=== PATIENT | female | born 1975 | race Two or more races ===

== ENCOUNTER 2020-01-18 08:44 | Inpatient (IN) | payer MEDICAID ==
[2020-01-16 09:42] LABS: APPEARANCE,URINE SLIGHTLY CLOUDY; BILIRUBIN, URINE NEGATIVE (NEGATIVE); COLOR,URINE PALE YELLOW; GLUCOSE, URINE (UA) 4+ (NEGATIVE); KETONES,URINE 1+ (NEGATIVE); LEUKOCYTE ESTERASE ,URINE NEGATIVE (NEGATIVE); NITRITE,URINE NEGATIVE (NEGATIVE); PH,URINE 5 (4.5-8.0); PROTEIN,URINE 1+ (NEGATIVE); UROBILINOGEN,URINE NORMAL MG/DL (0.0-1.0)
[2020-01-16 09:51] LABS: BASOPHILS % (AUTO) 1.5 % (0.0-2.0); EOSINOPHILS % (AUTO) 2.9 % (0.0-3.0); HEMATOCRIT 42.8 % (37.0-47.0); HEMOGLOBIN 14.5 G/DL (12.0-16.0); LYMPHOCYTES % (AUTO) 44.8 % (20.0-45.0); MEAN CORPUSCULAR VOLUME 90 FL (80-99); MONOCYTES % (AUTO) 5.8 % (1.0-10.0); PLATELET COUNT 362 K/UL (150-450); RED BLOOD COUNT 4.73 M/UL (4.20-5.40); RED CELL DISTRIBUTION WIDTH 13.5 % (11.6-14.8); WHITE BLOOD COUNT 7.1 K/UL (4.8-10.8)
[2020-01-16 10:00] LABS: ANION GAP 5 mmol/L (5-15); BLOOD UREA NITROGEN 13 mg/dL (7-18); CALCIUM 8.9 MG/DL (8.5-10.1); CARBON DIOXIDE 30 MMOL/L (21-32); CHLORIDE 101 MMOL/L (98-107); CREATININE 0.8 MG/DL (0.55-1.30); POTASSIUM 4.5 MMOL/L (3.5-5.1); SODIUM 136 MMOL/L (136-145)
[2020-01-16 10:06] LABS: INR 0.9 (0.9-1.1)
--- NOTE | 2020-01-16 11:33 | Diagnostic Imaging Report ---
Procedure: XRAY Chest 2v Reason for study: Reason For Exam: PREOP Comparison films: None. FINDINGS: There is a Port-A-Cath in place. Vascularity is normal. The lung alvarez are clear bilaterally. Cardiac and mediastinal silhouette are within normal limits. CP angles are sharp. The bony thorax appear unremarkable. IMPRESSION: NO ACUTE CARDIOPULMONARY DISEASE.
--- NOTE | 2020-01-16 15:15 | Pre-op HX & Phy Repo 2 SIG ---
DATE OF ADMISSION: 01/18/2020 DATE OF SURGERY: Scheduled for surgery, January 18, 2020. 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 The patient recently had to stop chemotherapy due to elevated liver function tests and some neuralgias approximately six weeks ago. The patient is scheduled to undergo left modified radical mastectomy and right total mastectomy. She has declined immediate reconstruction. PAST MEDICAL HISTORY/MEDICATIONS: None. ALLERGIES: None. OPERATIONS: Cholecystectomy. REVIEW OF SYSTEMS: She is 4, para 4. She has irregular menstrual periods. PHYSICAL EXAMINATION: GENERAL: The patient is 5 feet 1 inch, 201 pounds. VITAL SIGNS: Within normal limits. HEENT: Within normal limits. LUNGS: Clear. HEART: Regular rhythm. BREASTS: Large and ptotic. There is no palpable breast mass. There is a 3 x 4 cm mobile mass in the left axilla previously that has diminished in size. There is no palpable mass in either breast. There is no right axillary or supraclavicular lymphadenopathy. ABDOMEN: Soft. PELVIC: Per primary care. RECTAL: Per primary care. EXTREMITIES: Without edema. NEUROLOGIC: Physiologic. IMPRESSION: 1. Poorly differentiated stage II carcinoma, left breast, status post neoadjuvant chemotherapy. 2. BRCA2 genetic mutation. PLAN: Left modified radical mastectomy and right total mastectomy. DISCUSSION: I have had a full discussion with the patient regarding the nature of her condition, the nature of the surgery, indications, alternatives, options, and risks. She has declined reconstruction at this time. She understands the procedure includes lymph node dissection on the left side, which will not be done on the right. She understands drains will be needed and inpatient care postoperatively. I have discussed the risks of flap necrosis, infection, bleeding, need for additional procedures based on final pathology, need for additional treatments based on final pathology, etc. All questions have been answered. The patient understands and agrees to proceed. Adrian Montez M.D. DR: CARISA JOB#: [id number] CC: RERE
[2020-01-18] VITALS (14 sets, daily range): BP systolic 113–136; BP diastolic 54–76
[~2020-01-18] VITALS: Ht 157.5 cm; Wt 91.2 kg
[2020-01-18] MEDS ORDERED: Succinylcholine 20mg/ml 10ml vial ONE (10:26)
[2020-01-18] MEDS ORDERED: Rocuronium Bromide 50mg/5ml Inj IV ONE (10:26)
[2020-01-18] MEDS ORDERED: Bacitracin 50000 Units Vial ONE (10:26)
[2020-01-18] MEDS ORDERED: Midazolam 2mg/2ml Inj ONE (10:27)
[2020-01-18] MEDS ORDERED: fentaNYL 100 mcg/2 mL IV ONE (10:27)
[2020-01-18] MEDS ORDERED: Lidocaine 1% MPF 10mg/ml 5ml ONE (10:30)
--- NOTE | 2020-01-18 10:42 | Pre-Procedure Note/Attestation ---
Pre-Procedure Note/Attestation Complete Prior to Procedure Planned Procedure: bilateral Procedure Narrative: left modified radical mastectomy and right total mastectomy Indications for Procedure Pre-Operative Diagnosis: Metastatic left breast cancer to axillary lymph node; BRCA 2 mutation Attestation I attest that I discussed the nature of the procedure; its benefits; risks and complications; and alternatives (and the risks and benefits of such alternatives), prior to the procedure, with the patient (or the patient's legal lead customer service representative). I attest that, if there was a reasonable possibility of needing a blood transfusion, the patient (or the patient's legal lead customer service representative) was given the [facility] standardized written summary, pursuant to the [place] Blood Safety Act ([place] Health and Safety Code # 1645, as amended). I attest that I re-evaluated the patient just prior to the surgery and that there has been no change in the patient's H&P, except as documented below: none Adrian Montez MD Jan 18, 2020 10:42
[2020-01-18] MEDS ORDERED: Sterile Water Irrig 1000ml IRRIG ONE (11:00)
[2020-01-18] MEDS ORDERED: Insulin Human Regular 100units/ml 3ml ONE (11:00)
[2020-01-18] MEDS ORDERED: Insulin Human Regular 100units/ml 3ml IV SCH (11:00)
[2020-01-18] MEDS ORDERED: NS Irrig 1000ml ONE (11:00)
[2020-01-18] MEDS ORDERED: LR 1000ml ONE (11:00)
--- NOTE | 2020-01-18 11:03 | NUR ---
regular insulin 8 units sq given unable to scan barcode not working
[2020-01-18] MEDS ORDERED: Acetaminophen (Non formulary) 100 ML IV SCH (11:15)
[2020-01-18] MEDS ORDERED: Insulin Human Regular 100units/ml 3ml SUBQ SCH (11:15)
[2020-01-18] MEDS ORDERED: Morphine Sulfate 10mg/ml Inj ONE (12:06)
[2020-01-18] MEDS ORDERED: Glycopyrrolate 0.2mg/ml 1ml Vial ONE (12:08)
[2020-01-18] MEDS ORDERED: Sodium Chloride 10ml vial INJ ONE (12:08)
[2020-01-18] MEDS ORDERED: Ketorolac 30mg Inj ONE (12:08)
--- NOTE | 2020-01-18 12:29 | Anethesia Preoperative Eval ---
Anesthesia Pre-op PMH/ROS General Date of Evaluation: Jan 18, 2020 Time of Evaluation: 10:48 Anesthesiologist: Carissa ASA Score: ASA 3 Mallampati Score Class I : Soft palate, uvula, fauces, pillars visible Class II: Soft palate, uvula, fauces visible Class III: Soft palate, base of uvula visible Class IV: Only hard plate visible Mallampati Classification: Class III Surgeon: Melida Diagnosis: L breast CA Surgical Procedure: Bilateral mastectomy with L axillary l/n dissection Anesthesia History: none Family History: no anesthesia problems Allergies: Coded Allergies: No Known Allergies (Unverified , 01/16/20) Medications: see eMAR Patient NPO?: Yes Past Medical History Cardiovascular: Denies: HTN, CAD, NV, valve dz, arrhythmia, other Pulmonary: Reports: CELIA; Denies: asthma, COPD, other Gastrointestinal/Genitourinary: Reports: GERD; Denies: CRI, ESRD, other Neurologic/Psychiatric: Reports: depression/anxiety; Denies: dementia, CVA, TIA, other Endocrine: Reports: DM - Elevated BS on two occasions, sliding scale insulin, family informed; Denies: hypothyroidism, steroids, other HEENT: Denies: cataract (L), cataract (R), glaucoma, OMAHA (L), OMAHA (R), other Hematology/Immune: Reports: other - s/p chemotherapy; Denies: anemia, DVT, bleeding disorder Musculoskeletal/Integumentary: Denies: OA, RA, DJD, DDD, edema, other Other: obesity PMH Narrative: as above PSxH Narrative: Cholecystectomy Anesthesia Pre-op Phys. Exam Physician Exam Last Vital Signs Date Time Temp Pulse Resp B/P (MAP) Pulse Ox O2 Delivery O2 Flow Rate FiO2 01/18/20 09:31 Room Air 01/18/20 09:12 97.3 67 20 122/76 98 Constitutional: NAD Neurologic: CN 2-12 intact Cardiovascular: RRR, no M/R/G Respiratory: CTA Gastrointestinal: other - obesity Airway Exam Mallampati Score: Class III MO: limited Neck: sdhort ROM: full Teeth: missing Dentures: no upper, no lower Anesthesia Pre-op A/P Labs Chemistry Test 01/18/20 10:42 POC Whole Blood Glucose Pending Risk Assessment & Plan Assessment: ASA 3 Plan: GA with ETT Status Change Before Surgery: No Pre-Antibiotics Drug: Ancef 2gr. Given Within 1 Hr of Incision: Yes Time Given: 11:42 Omega Ferrer MD Jan 18, 2020 12:29
[2020-01-18] MEDS ORDERED: Meperidine 25mg/1ml Inj (FOR RIGORS ONLY) IV PRN (12:30)
[2020-01-18] MEDS ORDERED: Hydromorphone 0.5mg/0.5ml inj IVP PRN (12:30)
[2020-01-18] MEDS ORDERED: Ketorolac 30mg Inj IV PRN (12:30)
[2020-01-18] MEDS ORDERED: LR 1000ml 1,000 ML IVLG SCH (12:30)
[2020-01-18] MEDS ORDERED: Metoclopramide 10mg/2ml Inj IVP PRN ×2 (12:30→15:15)
[2020-01-18] MEDS ORDERED: DiphenhydrAMINE 50mg/ml Inj IVP PRN ×3 (12:30→19:30)
[2020-01-18] MEDS ORDERED: PCA HYDROmorphone 1mg/ml 30 ML IV PRN ×2 (14:52→19:30)
[2020-01-18] MEDS ORDERED: PCA Education Pamphlet MISC SCH (14:53)
[2020-01-18] MEDS ORDERED: Rate Change PCA 1 Each MISC PRN (15:00)
[2020-01-18] MEDS ORDERED: Naloxone 0.4mg/ml Inj IVP PRN ×2 (15:00→19:30)
--- NOTE | 2020-01-18 15:23 | Brief Operative Note ---
Immediate Post Operative Note Operative Note Pre-op Diagnosis: Metastatic left breast cancer to axillary lymph node; BRCA 2 mutation Procedure: left modified radical mastectomy, right total mastectomy Post-op Diagnosis: same Post-op Diagnosis: same as pre-op Findings: consistent w/pre-op dx studies Surgeon: allie Anesthesiologist: amparo Anesthesia: general Specimen: yes - left breast and axillary lymph nodes, right breast Complications: none Condition: stable Fluids: see anesthesia record Estimated Blood Loss: volume - 150cc Drains: JAROD Implant(s) used?: No Adrian Montez MD Jan 18, 2020 15:23
--- NOTE | 2020-01-18 15:24 | Immediate Post-Op Evaluation ---
Immediate Post-Op Evalulation Immediate Post-Op Evalulation Procedure: Bilateral mastectomy with L axillary l/n disection Date of Evaluation: Jan 18, 2020 Time of Evaluation: 15:23 IV Fluids: 1200 Blood Products: `none Estimated Blood Loss: 150 Urinary Output: 150 Blood Pressure Systolic: 124 Blood Pressure Diastolic: 56 Pulse Rate: 78 Respiratory Rate: 20 O2 Sat by Pulse Oximetry: 99 Temperature (Fahrenheit): 97.7 Pain Score (1-10): 2 Nausea: No Vomiting: No Patient Status: reacts, patent, extubated Hydration Status: adequate Omega Ferrer MD Jan 18, 2020 15:24
[2020-01-18] MEDS ORDERED: Dextrose 50% 25ml Syringe IV PRN (15:30)
--- NOTE | 2020-01-18 16:30 | NUR ---
NURSE NOTES: Pt came up to unit in stable condition and w/all belongings accounted for. Pt A&Ox4; VSS; on 3L NC; and has no c/o pain. IV site intact/asymptomatic; OYSTER TONGER Dilaudid started in PACU; and JAROD drains to bulb suction. Bed in lowest position and call light/OYSTER TONGER button within reach. Will continue to monitor.
--- NOTE | 2020-01-18 16:45 | Operative Note - Dictated ---
DATE OF OPERATION: 01/18/2020 SURGEON: Adrian Montez MD. VEHICLE FUEL SYSTEMS CONVERTER: None. ANESTHESIOLOGIST: Omega Ferrer MD. TYPE OF ANESTHESIA: General. PREOPERATIVE DIAGNOSES: 1. Metastatic breast cancer to the left axillary node. 2. BRCA2 positive. POSTOPERATIVE DIAGNOSES: 1. Metastatic breast cancer to the left axillary node. 2. BRCA2 positive. OPERATION PERFORMED: 1. Left modified radical mastectomy. 2. Right total mastectomy. INDICATIONS: The patient presenting earlier this year with mammogram and ultrasound showing an abnormal left axillary lymph node. Core biopsy of the left axillary lymph node revealed metastatic breast cancer, poorly differentiated. The patient was treated with neoadjuvant chemotherapy. Genetic testing reveals she is positive for the BRCA2 mutation. The patient understood she needed left modified radical mastectomy and right total mastectomy. DESCRIPTION OF PROCEDURE: The patient was taken to the operating room and under general anesthesia with sequential compression device stockings in place, she was prepped and draped in usual fashion. The entire anterior chest, both breasts were prepped and included in the field. The extent of the breast was outlined the latissimus dorsi laterally, second rib superiorly, sternum medially and the costal margin with mammary fold inferiorly. Attention was first directed to the left side where the patient had positive axillary metastases. A transversely oriented elliptical incision was made encompassing the nipple-areolar complex. Flaps were dissected circumferentially. The breast was resected from the chest wall using the Thunderbeat vessel sealing electrosurgical device and standard cautery. The axillary dissection was performed with the Thunderbeat and hemostasis carefully achieved. The specimen was given to pathology who confirmed the presence of axillary lymph nodes. Two 19 mm round Enzo drains were placed through the stab incisions inferior and lateral, one into the axilla and one under the flaps, both sutured to the skin with 2-0 silk skin suture. The field was irrigated with sterile water and then antibiotic solution. After confirming that hemostasis was secured, the incision was closed with continuous 2-0 Vicryl deep dermal subcutaneous sutures and the skin closed with rosa. Xeroform applied over the incision. Attention was then directed to the right side where a right total mastectomy was performed with the same transversely oriented elliptical incision with flap dissection, but no axillary dissection. One 19 mm round Enzo drain was placed, sutured to the skin with 2-0 silk. The skin was closed in the same fashion as the left side. Xeroform and dry sterile dressings were applied to both incisions. The patient tolerated the procedures well and left the operating room in good condition. Adrian Montez M.D. DR: CARISA JOB#: [id number] CC:
[2020-01-18] MEDS: 1/2NS w/KCl 20mEq 1000ml 1,000 ML IV SCH (17:50)
[2020-01-18] MEDS ORDERED: PCA shift volume MISC SCH (19:00)
[2020-01-18] MEDS ORDERED: LORazepam 1mg tab ORAL PRN (19:30)
--- NOTE | 2020-01-18 19:39 | NUR ---
NURSE HAND-OFF: Important Events on Shift: Pt admitted to unit and FOSTER CARE CASE MANAGER Dilaudid started in PACU. Patient Status: Stable Diet: CCHO (medium) Pending Orders: None Pending Results/Labs: None Pending MD notification: None Latest Vital Signs: Temperature 98.0 , Pulse 91 , B/P 134 /74 , Respiratory Rate 16 , O2 SAT 99 , Nasal Cannula, O2 Flow Rate 3.0 . Vital Sign Comment: Stable Latest Moulton Fall Score: 55 Fall Risk: High Risk Safety Measures: Call light Within Reach, Bed Alarm , Side Rails Side Rails x3, Bed position Low and Locked. Fall Precautions: Report given to HUMBERTO Cortez.
--- NOTE | 2020-01-18 19:45 | NUR ---
NURSE NOTES: Received report from Zay PAUL. Patient is alert and oriented x4. On NC 3L titrated to 2L with O2 sat at 100%. Breathing is even and unlabored with no distress noted. No c/o pain. Skin is intact. JAROD drain 2 on left breast and 1 on right breast noted. Serosanguinous drainage noted. Will drain q4h and as needed. Right foot IV intact and patent with no bleeding. IVF running as ordered. Bed low and locked. Call light within reach.
[2020-01-18] MEDS ORDERED: Insulin NovoLOG Flexpen S/S (Mod) SUBQ SCH (21:00)
[2020-01-18] MEDS: ceFAZolin sod 1 GM in D5W 55 ML IV SCH (22:55)
[2020-01-18] MEDS: Insulin NovoLOG Flexpen S/S (Mod) SUBQ SCH (23:34)
[2020-01-19] MEDS: 1/2NS w/KCl 20mEq 1000ml 1,000 ML IV SCH ×2 (03:59→15:23)
[2020-01-19 04:00] VITALS: BP 127/93
[2020-01-19] MEDS: ceFAZolin sod 1 GM in D5W 55 ML IV SCH (06:11)
[2020-01-19] MEDS: Insulin NovoLOG Flexpen S/S (Mod) SUBQ SCH ×4 (06:11→20:50)
[2020-01-19 06:13] LABS: BASOPHILS % (AUTO) 0.9 % (0.0-2.0); EOSINOPHILS % (AUTO) 1.5 % (0.0-3.0); HEMATOCRIT 34.5 % (37.0-47.0); HEMOGLOBIN 11.9 G/DL (12.0-16.0); LYMPHOCYTES % (AUTO) 33.5 % (20.0-45.0); MEAN CORPUSCULAR VOLUME 91 FL (80-99); MONOCYTES % (AUTO) 5.8 % (1.0-10.0); NEUTROPHILS % (AUTO) 58.2 % (45.0-75.0); PLATELET COUNT 283 K/UL (150-450); RED CELL DISTRIBUTION WIDTH 13.8 % (11.6-14.8); WHITE BLOOD COUNT 9.4 K/UL (4.8-10.8)
[2020-01-19 06:43] LABS: ALANINE AMINOTRANSFERASE 161 U/L (12-78); ALBUMIN 2.9 G/DL (3.4-5.0); ALBUMIN/GLOBULIN RATIO 0.8 (1.0-2.7); ALKALINE PHOSPHATASE 146 U/L (46-116); ANION GAP 6 mmol/L (5-15); ASPARTATE AMINO TRANSFERASE 103 U/L (15-37); BILIRUBIN,TOTAL 0.6 MG/DL (0.2-1.0); BLOOD UREA NITROGEN 14 mg/dL (7-18); CALCIUM 8.2 MG/DL (8.5-10.1); CARBON DIOXIDE 27 MMOL/L (21-32); CHLORIDE 103 MMOL/L (98-107); CREATININE 0.7 MG/DL (0.55-1.30); POTASSIUM 3.7 MMOL/L (3.5-5.1); SODIUM 136 MMOL/L (136-145)
[2020-01-19] MEDS ORDERED: PCA shift volume MISC SCH (07:00)
--- NOTE | 2020-01-19 07:01 | NUR ---
NURSE HAND-OFF: Important Events on Shift: CHEMICAL EQUIPMENT SALES ENGINEER, JAROD drain, ABX Patient Status: Stable Diet: CCHO (medium) Pending Orders: N/A Pending Results/Labs:N/A Pending MD notification:N/A Latest Vital Signs: Temperature 98.2 , Pulse 79 , B/P 127 /93 , Respiratory Rate 16 , O2 SAT 98 , Nasal Cannula, O2 Flow Rate 2.0 . Vital Sign Comment: VS stable Latest Moulton Fall Score: 45 Fall Risk: High Risk Safety Measures: Call light Within Reach, Bed Alarm , Side Rails Side Rails x2, Bed position Low and Locked. Fall Precautions: Patient Fall Education Report will be given to Alisha wills RN.
--- NOTE | 2020-01-19 07:33 | 48 Hour Post Anesthesia Eval ---
Post Anesthesia Evaluation Procedure: Bilateral mastectomy with L axillary l/n disection Date of Evaluation: Jan 19, 2020 Time of Evaluation: 07:30 Blood Pressure Systolic: 128 0: 76 Pulse Rate: 74 Respiratory Rate: 20 Temperature (Fahrenheit): 97.6 O2 Sat by Pulse Oximetry: 98 Airway: patent Nausea: No Vomiting: No Pain Intensity: 2 Hydration Status: adequate Cardiopulmonary Status: stable Mental Status/LOC: patient returned to baseline Follow-up Care/Observations: n/a Post-Anesthesia Complications: none Follow-up care needed: N/A Omega Ferrer MD Jan 19, 2020 07:33
--- NOTE | 2020-01-19 07:45 | NUR ---
NURSE NOTES: Received report from HUMBERTO Cortez. Rounding done with outgoing nurse. Pt a/o x 4, in bed. No SOB noted with PRECISION FARMING COORDINATOR. Denies any pain at this time. Pt vomitted 2 times around 7pm yesterday per night shift manager nurse. No vomiting noted at this time. JAROD drain is in placed and compressed properly. Both mastectomy site dressing is dry/intact. Rt foot IV fluid, 1/2NS + KCl 20 is running @100ml/hr. SCD is on for right foot only. Will provide SCD for left foot soon. Bed in lowest position, call light within reach. Will continue to monitor.
[2020-01-19 08:00] VITALS: BP 147/85
--- NOTE | 2020-01-19 08:56 | General Progress Note ---
Progress Note Progress Note AVSS Emesis last night and this AM. Pain not severe - on Dilaudid BORE MILL OPERATOR FOR PLASTIC with basal infusion Bilateral mastectomy incisions are clean, flaps all viable JPs total (2 on left, one on right) 153 serosang Hyperglycemia pre-op - not known to be diabetic. Glucose 343 (random) and fasting 182 MIld elevated LFTs due to recent chemotherapy Imp: stable but nausea/emesis Plan: D/C BORE MILL OPERATOR FOR PLASTIC [place] or Dilaudid SQ prn pain Ambulate with assistance Adrian Montez MD Jan 19, 2020 08:56
[2020-01-19] MEDS ORDERED: HYDROcodone/Acetamin 5/325 tab ORAL PRN (09:00)
--- NOTE | 2020-01-19 10:23 | NUR ---
NURSE NOTES: Patient ambulated hallway x 1 with RN assistance in stable condition.
--- NOTE | 2020-01-19 11:51 | NUR ---
CASE MANAGEMENT:INITIAL REVIEW 44 YR OLD FEMALE FROM HOME FOR SCHEDULED PROCEDURE CC;Metastatic left breast cancer to axillary lymph node SI;POD #1 LT MODIFIED RADICAL MASTECTOMY. RT TOTOL MASTECTOMY. 97.3 67 20 122/76 98% ON RA BG 343 UA+ PROTEIN, GLUCOSE, KETONES, BLOOD COVID RAPID ~ NEGATIVE CXR ~ NO ACUTE CARDIOPULMONARY DISEASE. IS;INSULIN REGULAR SQ TYLENOL IV MORPHINE IV IVF NS TORADOL IV IVF LR DILAUDID IV ADMITTED TO MED SURG FOR POST OP CARE MED SURG STATUS DCP;FROM HOME PLAN; D/C TRAINING MANAGER Dexter or Dilaudid SQ prn pain Ambulate with assistance
[2020-01-19 12:00] VITALS: BP 140/79
[2020-01-19] MEDS: HYDROmorphone 1mg/ml Carpuject SUBQ PRN ×2 (12:08→18:06)
[2020-01-19 16:00] VITALS: BP 135/79
--- NOTE | 2020-01-19 16:20 | NUR ---
NURSE NOTES: Patient ambulated with RN assistance in stable condition.
--- NOTE | 2020-01-19 19:40 | NUR ---
NURSE HAND-OFF: Important Events on Shift:Ambulating with RN assistance x 2, c/o nausea, vomiting x1, D/C FUR IRONER Patient Status: stable Diet: CCHO (M) Pending Orders: n/a Pending Results/Labs:n/a Pending MD notification:n/a Latest Vital Signs: Temperature 98.1 , Pulse 84 , B/P 135 /79 , Respiratory Rate 16 , O2 SAT 93 , Nasal Cannula, O2 Flow Rate 2.0 . Vital Sign Comment: stable Latest Moulton Fall Score: 45 Fall Risk: High Risk Safety Measures: Call light Within Reach, Bed Alarm , Side Rails Side Rails x2, Bed position Low and Locked. Fall Precautions: Patient Fall Education Report given to HUMBERTO Dunbar.
--- NOTE | 2020-01-19 19:43 | NUR ---
NURSE NOTES: Pt received from HUMBERTO Reaves alert and oriented x4, primarily Bel[place]ian-speaking with no acute s/s of distress noted. Patient ambulating inside room upon RN rounds, with slow, steady gait. Pt denies pain. Dressing on anterior chest clean, dry, and intact. L #1, L #2, and R JAROD drains noted. IV site asymptomatic and patent on R hand 22g, running to 1/2 NS with 20 KCL at 100. RN encouraged pt to ambulate before bed, pt verbalized understanding.
[2020-01-19 20:00] VITALS: BP 136/80
[2020-01-20] VITALS: BP 105/58
[2020-01-20] MEDS: 1/2NS w/KCl 20mEq 1000ml 1,000 ML IV SCH (00:30)
[2020-01-20] MEDS: HYDROmorphone 1mg/ml Carpuject SUBQ PRN (00:32)
--- NOTE | 2020-01-20 02:10 | NUR ---
nurse's notes: received patient from HUMBERTO Dunbar. Asleep, in no apparent distress. will continue plan of care.
--- NOTE | 2020-01-20 02:25 | NUR ---
HAND-OFF: Report given to HUMBERTO Barba. Plan of care endorsed.
[2020-01-20 04:00] VITALS: BP 120/65
[2020-01-20 05:43] LABS: EOSINOPHILS % (AUTO) 1.9 % (0.0-3.0); HEMATOCRIT 34.8 % (37.0-47.0); HEMOGLOBIN 12.3 G/DL (12.0-16.0); LYMPHOCYTES % (AUTO) 33.6 % (20.0-45.0); MEAN CORPUSCULAR VOLUME 89 FL (80-99); MONOCYTES % (AUTO) 8.3 % (1.0-10.0); NEUTROPHILS % (AUTO) 55.3 % (45.0-75.0); PLATELET COUNT 274 K/UL (150-450); RED BLOOD COUNT 3.94 M/UL (4.20-5.40); WHITE BLOOD COUNT 9.6 K/UL (4.8-10.8)
[2020-01-20] MEDS: Insulin NovoLOG Flexpen S/S (Mod) SUBQ SCH ×4 (06:07→21:40)
[2020-01-20 06:09] LABS: ALANINE AMINOTRANSFERASE 122 U/L (12-78); ALBUMIN/GLOBULIN RATIO 0.8 (1.0-2.7); ALKALINE PHOSPHATASE 159 U/L (46-116); ANION GAP 6 mmol/L (5-15); ASPARTATE AMINO TRANSFERASE 72 U/L (15-37); BILIRUBIN,TOTAL 0.7 MG/DL (0.2-1.0); BLOOD UREA NITROGEN 8 mg/dL (7-18); CALCIUM 8.8 MG/DL (8.5-10.1); CARBON DIOXIDE 28 MMOL/L (21-32); CHLORIDE 102 MMOL/L (98-107); CREATININE 0.8 MG/DL (0.55-1.30); POTASSIUM 4.1 MMOL/L (3.5-5.1); SODIUM 136 MMOL/L (136-145)
--- NOTE | 2020-01-20 06:19 | NUR ---
NURSE HAND-OFF: Important Events on Shift: none Patient Status: stable, alert and calm Diet: see orders Pending Orders: AM labs Pending Results/Labs: as stated above Pending MD notification:none Latest Vital Signs: Temperature 99.0 , Pulse 83 , B/P 120 /65 , Respiratory Rate 18 , O2 SAT 97 , Nasal Cannula, O2 Flow Rate 2.0 . Vital Sign Comment: VSS Latest Moulton Fall Score: 35 Fall Risk: Medium Risk Safety Measures: Call light Within Reach, Bed Alarm , Side Rails Side Rails x2, Bed position Low and Locked. Fall Precautions: Patient Fall Education Report will be given to HUMBERTO Thayer.
--- NOTE | 2020-01-20 07:45 | NUR ---
NURSE NOTES: Received report from HUMBERTO Barba Pt alert and oriented x4, primarily Armenian-speaking. Breathing even and unlabored, no acute s/s of distress noted. Denied pain at this time. Surgical dressingclean, dry, and intact. L #1, L #2, and R JAROD drains noted. IV site asymptomatic and patent running IVF. Call light within reach. Will continue to monitor.
[2020-01-20 08:00] VITALS: BP 119/77
--- NOTE | 2020-01-20 10:03 | General Progress Note ---
Progress Note Progress Note AVSS No further emesis - tolerating po intake now. Using dilaudid SQ for pain bilateral mastectomy incisions clean and dry, flaps well perfused. JAROD drain output right side 210cc serous/mildly serosang JAROD left x 2 145+50 CBC stable Hyperglycemia treated with sliding scale Imp: Improved Large volume drainage Plan: continue in-patient care d/c IV fluids teach patient care of JAROD drains f/u labs in AM Adrian Montez MD Jan 20, 2020 10:03
[2020-01-20 12:00] VITALS: BP 115/61
--- NOTE | 2020-01-20 12:18 | NUR ---
CASE MANAGEMENT:REVIEW 01/20/20 SI: POD #1. S/P MASTECTOMY 97.8 74 18 119/77 95% ON RA glucose+224 IS: DILAUDID SQ Q4HRS PRN SS INSULIN AC+HS : MED/SURG STATUS 3 EAST DCP: FROM HOME PLAN: TEACH PATIENT TO CARE FOR JAROD DRAIN
[2020-01-20 16:00] VITALS: BP 113/63
[2020-01-20] MEDS: oxyCODONE HCL/Acetaminophen 5/325mg ORAL PRN (16:30)
--- NOTE | 2020-01-20 19:24 | NUR ---
NURSE HAND-OFF: Important Events on Shift:[Ambulated TID, Educated pt how to take care of JPs, start new PRN pain med] Patient Status: [stable] Diet: [CCHO] Pending Orders: [] Pending Results/Labs:[] Pending MD notification:[] Latest Vital Signs: Temperature 99.3 , Pulse 81 , B/P 113 /63 , Respiratory Rate 18 , O2 SAT 95 , Room Air, O2 Flow Rate 2.0 . Vital Sign Comment: [stable] Latest Moulton Fall Score: 35 Fall Risk: Medium Risk Safety Measures: Call light Within Reach, Bed Alarm , Side Rails Side Rails x2, Bed position Low and Locked. Fall Precautions: Patient Fall Education Report given to [HUMBERTO Victor].
[2020-01-20 19:38] VITALS: BP 119/73
--- NOTE | 2020-01-20 19:40 | NUR ---
NURSE NOTES: patient alet and oriented, denies any pain or discomfort. no distress, encouraged use of is.
--- NOTE | 2020-01-20 19:51 | NUR ---
NURSE NOTES: marnie Addendum: 01/20/20 at 1951 by Kayleigh Gomez RN patient alert and oriented resting no pain or discomfort noted.
[2020-01-21] VITALS: BP 112/71
[2020-01-21] MEDS: oxyCODONE HCL/Acetaminophen 5/325mg ORAL PRN ×2 (01:17→10:49)
[2020-01-21 04:00] VITALS: BP 110/66
[2020-01-21] MEDS: Insulin NovoLOG Flexpen S/S (Mod) SUBQ SCH ×2 (05:44→11:59)
--- NOTE | 2020-01-21 06:38 | NUR ---
NURSE HAND-OFF: Important Events on Shift:[] patient slept thru the night. not in any distress or discomfort. required minimal assistance to the bathroom. Patient Status: [] stable Diet: [] ccd medium Pending Orders: [] none Pending Results/Labs:[] cbc, bmp Pending MD notification:[] none Latest Vital Signs: Temperature 97.9 , Pulse 81 , B/P 110 /66 , Respiratory Rate 20 , O2 SAT 77 , Room Air, O2 Flow Rate 2.0 . Vital Sign Comment: [] Latest Moulton Fall Score: 35 Fall Risk: Medium Risk Safety Measures: Call light Within Reach, Bed Alarm , Side Rails Side Rails x2, Bed position Low and Locked. Fall Precautions: Patient Fall Education Report given to []. Addendum: 01/21/20 at 0727 by Kayleigh Gomez RN report given to philipp martines
--- NOTE | 2020-01-21 06:41 | NUR ---
NURSE NOTES: mera#1. (45 ml) mera#2. (15 ml) mera#3. (37.5ml) oral intake: 360 ml urine output: 500+ 3x voids
--- NOTE | 2020-01-21 07:30 | NUR ---
NURSE NOTES: Patient lying in bed awake. No complain of pain or distress at this time. Surgical dressing intact and dry. JAROD x3 on surgical site and patent. IV dressing intact and dry. Bed lowest position. Call light within reach. Will continue to monitor.
[2020-01-21 08:00] VITALS: BP 117/76
[2020-01-21 09:48] LABS: EOSINOPHILS % (AUTO) 4.4 % (0.0-3.0); HEMATOCRIT 33.7 % (37.0-47.0); HEMOGLOBIN 11.8 G/DL (12.0-16.0); LYMPHOCYTES % (AUTO) 41.9 % (20.0-45.0); MEAN CORPUSCULAR VOLUME 89 FL (80-99); NEUTROPHILS % (AUTO) 46.7 % (45.0-75.0); PLATELET COUNT 264 K/UL (150-450); RED CELL DISTRIBUTION WIDTH 13.6 % (11.6-14.8); WHITE BLOOD COUNT 6.6 K/UL (4.8-10.8)
--- NOTE | 2020-01-21 10:09 | General Progress Note ---
Progress Note Progress Note AVSS Doing well with occasional need for percocet 5/325. Has learned care of JAROD drains bilateral mastectomy incisions clean, dry, intact. No ischemia of flaps. Dressed and wrapped chest with bias wrap JAROD: 120+35 (left) 82 (right) Hgb 12.3 Glucose 190 Imp: Stable for discharge Plan; dischare Rx Percocet 5/325 #24 maintain listing of drain outputs f/u office 01/24 Advised re diabetic diet, to f/u with PMD re diabetes management instructions/limitations provided/discussed Adrian Montez MD Jan 21, 2020 10:09
[2020-01-21 10:19] LABS: ANION GAP 6 mmol/L (5-15); BLOOD UREA NITROGEN 9 mg/dL (7-18); CALCIUM 8.6 MG/DL (8.5-10.1); CARBON DIOXIDE 27 MMOL/L (21-32); CHLORIDE 103 MMOL/L (98-107); CREATININE 0.7 MG/DL (0.55-1.30); POTASSIUM 3.6 MMOL/L (3.5-5.1); SODIUM 136 MMOL/L (136-145)
[2020-01-21] MEDS ORDERED: PERCOCET 5-3251 EACH ORAL (10:52)
[2020-01-21 12:00] VITALS: BP 113/70
--- NOTE | 2020-01-21 12:10 | NUR ---
NURSE NOTES: Patient discharged with family member in stable condition. Discharge instruction given to patient and verbalized understanding. Belonging and pain medication prescription given to patient. IV and ID removed. JAROD education provided and verbalized understanding. Instructed to follow up with MD. Patient ambulated out with all personal belongings with steady gait.
--- NOTE | 2020-01-23 12:43 | Discharge Summary ---
Discharge Summary Hospital Course Date of Admission Jan 18, 2020 at 16:57 Date of Discharge Jan 21, 2020 at 12:10 Admitting Diagnosis Metastatic breast cancer Reason for Hospitalization: elective surgery HOLDEN Washington is a 44 year old female who was admitted on Jan 18, 2020 at 16:57 for metastatic breast cancer. 44-year-old female who has been receiving neoadjuvant chemotherapy for carcinoma of the left breast, metastatic to the axillary lymph nodes, poorly differentiated with genetic testing revealing that she carries the BRCA2 mutation. The patient recently had to stop chemotherapy due to elevated liver function tests and neuralgia ( approximately six weeks ago). The patient was scheduled to undergo left modified radical mastectomy and right total mastectomy. She had declined immediate reconstruction. Procedures s/p 01/17 1. Left modified radical mastectomy 2. Right total mastectomy Hospital Course status post surgery patient tolerated procedure well initially IV fluids s/p prophylactic antibiotic pain management was addressed initially pain was controlled with BIG 6 DEALER , wchich soon discontinued incision site remained clean, flaps were viable output of Kory-Nura was closely monitored ( patient had two on the left side and one on he right side) noted large volumes of drainage form JPs patient was taught care of the JAROD drains patient remained hemodynamically stable DVT with SCD provided , ambulation encouraged use of incentive spirometry was encouraged while in the bed blood sugar was closely monitored patient noted to have hyperglycemia no prior history of diabetes blood sugar was managed with sliding scale of insulin patient had mildly elevated LFT, likely due to recent chemotherapy reported nausea and emesis antiemetic provided as needed tolerated diet , IV fluids discontinued GI prophylaxis provided voided freely bowel regimen instituted pain was controlled with oral analgesic incision remained dry and intact with viable flaps chest was dressed and wrapped with bias wrap. prescription for Percocet provided patient was instructed to monitor and record output of JAROD drains patient was advised on diabetic diet and follow-up with a primary care provider regarding diabetes management instructions/limitations provided/discussed follow-up in the office 01/24 FINAL DIAGNOSES 1. Metastatic breast cancer to the left axillary node. 2. BRCA2 positive. 3. s/p Left modified radical mastectomy. Right total mastectomy. 4. Hyperglycemia 5. Elevated LFT, likely due to recent chemotherapy Discharge Medications Continued Medications: Oxycodone/Acetaminophen 5-325* (Percocet 5-325 Mg Tablet*) 1 Each Tablet 1 TAB ORAL Q4H PRN for For Pain, #24 TAB 0 Refills Discharge Condition Upon Discharge: stable Discharge Vital Signs Last Vital Signs Date Time Temp Pulse Resp B/P (MAP) Pulse Ox O2 Delivery O2 Flow Rate FiO2 01/21/20 12:00 97.9 72 18 113/70 (84) 95 01/21/20 09:00 Room Air 01/19/20 21:01 2.0 Discharge Disposition Patient was discharged home Discharge Instructions Discharge Instructions Special Instructions I have been assigned to complete a D/C Summary on this account. I was not involved in the patient management Yue Adler NP Jan 23, 2020 12:43
== END 2020-01-21 12:10 | disposition home or self-care (01) | DRG 362 ==
LOC: SUR 08:44 → 3E 16:57
PROC: 07T60ZZ Resection of Left Axillary Lymphatic, Open Approach (ICD-10-PCS; 2020-01-18)
PROC: 0HTV0ZZ Resection of Bilateral Breast, Open Approach (ICD-10-PCS; principal; 2020-01-18 11:00)
DX: C50.912 Malignant neoplasm of unspecified site of left female breast (principal); C77.3 Secondary and unspecified malignant neoplasm of axilla and upper limb lymph nodes; Z15.01 Genetic susceptibility to malignant neoplasm of breast; R73.9 Hyperglycemia, unspecified; Z90.49 Acquired absence of other specified parts of digestive tract
CPT/HCPCS: 36415; 71046; 80048; 80053; 81001; 81025; 82962; 85025; 85610; 85730; 93005; 94003; 94150; J1815; J2250; J2405; U0002